=== PATIENT | male | born 1965 | race Caucasian/White ===

== ENCOUNTER → 2019-09-01 | Outpatient (CLI) | payer BC ==
[~2019-09-01] MED LIST: ALPR1TAB PO; ASPI81TA50 PO; ATOR20TA PO; BUPIVACAINE-EPI 0.25%-1:200000 MPF 30 ML VIAL. ONE; ESCITALOPRAM OX20 MG PO; MULT1TAB52 PO; OMEG-33 PO
--- NOTE | 2019-09-01 10:36 | PDOC4 ---
Operative Report DATE 09/01/2019 Preop Diagnosis Right shoulder mass Post-op Diagnosis Same Operation Performed Excision of right shoulder mass Patient is a 54-year-old gentleman is complained of enlarging mass on his upper back right shoulder. Procedure of excision of mass was explained to the patient detail risk benefits were also discussed including bleeding infection alternatives to this procedure also discussed with the patient seemed to understand and gave both verbal and written consent to have the procedure performed. Patient was taken to the miners room placed in the prone position his right upper back and shoulder were prepped and draped usual sterile fashion using ChloraPrep. An area over the mass was injected with quarter percent Marcaine with epinephrine incision was made with 15 blade scalpel this carried down through the subcutaneous tissue until the mass was visualized which appeared to be a lipoma mass was removed sharply and sent for pathology. Mass size proximally 5 x 5 cm. Wound was then closed in 2 layers a deep layer running 3-0 Vicryl and skin was approximate for septic and a Monocryl Mastisol Steri- Strips and island dressings were applied. Patient tolerated procedure well is discharged home in stable condition Surgeon Lior Anesthesiologist Local anesthesia ANESTHESIA PROPOSED: LOCAL Blood Loss 5 mL IV Fluid None Specimen 5 cm subcutaneous mass Complications None MARINE ROJO MD Sep 01, 2019 10:36
--- NOTE | 2019-09-01 10:37 | DISCH ---
DISCHARGE INSTRUCTIONS-DC Condition on Discharge Condition on Discharge: Stable Activity after Discharge Activity Instructions for Disc: Avoid exertion Wound/Incision Care Other wound/incision instructi: May shower in 24 hours Contacting the after DC Call your doctor for: If your condition worsens Follow-Up Follow up with: Dr. Rojo in 2 weeks MARINE ROJO MD Sep 01, 2019 10:37
[2019-09-01 10:47] VITALS: BP 120/74
--- NOTE | 2019-09-03 14:07 | PATHOLOGY ---
[facility] Accession Number: [id number] . 01 Material submitted: . shoulder - RIGHT SHOULDER LIPOMA. Modifiers: right . 01 Clinical history: . Right shoulder lipoma . 02 Diagnosis: Fibroadipose tissue, right shoulder: - Lipoma. (JPM:omar; 09/03/2019) QMS 09/03/2019 1159 Local . 02 Comment: There is no evidence of malignancy. . 02 Electronically signed: . Jw Limon MD, Pathologist NPI- [id number] . 01 Gross description: . The specimen is received in formalin, labeled "Isaiah Guadarrama, right shoulder lipoma". Received is a segment of yellow-berkowitz lobulated tissue measuring 7.5 x 3.2 x 3.0 cm in greatest dimensions. Sectioning reveals bright yellow cut surfaces with no grossly distinct nodules or lesions. The specimen is submitted representatively in cassette A1. (CAA; 09/02/2019) QAC/QA 09/02/2019 0858 Local . 02 Pathologist provided ICD-10: D17.79 . 02 CPT . 167721 Specimen Comment: A courtesy copy of this report has been sent to Specimen Comment: [phone]. Specimen Comment: Report sent to Performed at: 01 [facility] [address], [place], [place] [id number] MD Howard Campoverde MD Phone: [phone] Performed at: 02 [facility] [address], [place] [id number] MD Jw Limon MD Phone: [phone]
== END ==
LOC: SURG 09:27
PROVIDERS: ATTEND Surgery
DX: R22.31 Localized swelling, mass and lump, right upper limb (principal); D17.21 Benign lipomatous neoplasm of skin and subcutaneous tissue of right arm; F17.210 Nicotine dependence, cigarettes, uncomplicated; F41.9 Anxiety disorder, unspecified; F32.9 Major depressive disorder, single episode, unspecified; Z72.89 Other problems related to lifestyle; Z98.890 Other specified postprocedural states; Z98.52 Vasectomy status
CPT/HCPCS: 11406; 88304; J3490; 23071